=== PATIENT | female | born 1975 | race Caucasian/White ===

== ENCOUNTER 2021-01-21 09:49 | Outpatient (CLI) | payer BC | END 2021-01-21 09:50 | disposition home or self-care (01) | LOC: TBSIIMAG 09:49 | PROVIDERS: ATTEND Surgery | DX: M51.26 Other intervertebral disc displacement, lumbar region (principal); M25.559 Pain in unspecified hip; M47.816 Spondylosis without myelopathy or radiculopathy, lumbar region; M48.061 Spinal stenosis, lumbar region without neurogenic claudication | CPT/HCPCS: 72110; 72148 ==